=== PATIENT | male | born 1965 | race Caucasian/White ===

== ENCOUNTER 2023-08-09 09:15 | Outpatient (CLI) | payer OTHER, MEDICARE ==
[~2023-08-09 09:15] MED LIST: ATOR80TA PO; CAPT1TAB8 PO; FENO145T38 PO; INSU100C4 SQ; INSU100V15 SQ; METF-1203 PO; NIA500ERT PO; PIOG45TA PO; [UNRECOGNIZED DRUG - CODE] PO
[2023-08-09 10:10] LABS: ALBUMIN 3.9 G/DL (3.4-5.0); ANION GAP 8 (8-16); BLOOD UREA NITROGEN 31 MG/DL (7-18); BUN/CREATININE RATIO 24.4 (10.0-20.0); CALCIUM 9.5 MG/DL (8.5-10.1); CHLORIDE 105 MMOL/L (99-107); CREATININE 1.27 MG/DL (0.60-1.10); GLUCOSE 144 MG/DL (70-104); POTASSIUM 4.3 MMOL/L (3.5-5.1); SODIUM 142 MMOL/L (135-145); TOTAL CARBON DIOXIDE 28.7 MMOL/L (24-32); eGFR 58 ML/MIN
[2023-08-09] MEDS ORDERED: iohexol 350 MG/ML 50ML vial IV ONE (10:15)
[2023-08-09] MEDS ORDERED: iohexol 350MG/ML 100ml bottle IV ONE (10:15)
== END 2023-08-09 23:59 | disposition home or self-care (01) ==
LOC: RAD 09:15
PROVIDERS: ATTEND Student in an Organized Health Care Education/Training Program
DX: I70.213 Atherosclerosis of native arteries of extremities with intermittent claudication, bilateral legs (principal); R60.0 Localized edema; I70.0 Atherosclerosis of aorta; I65.23 Occlusion and stenosis of bilateral carotid arteries; J98.11 Atelectasis; K82.8 Other specified diseases of gallbladder; K76.0 Fatty (change of) liver, not elsewhere classified; K57.30 Diverticulosis of large intestine without perforation or abscess without bleeding; Z98.890 Other specified postprocedural states
CPT/HCPCS: 36415; 75635; 80048; J3490; Q9967